=== PATIENT | female | born 1955 | race Caucasian/White ===

== ENCOUNTER 2022-07-30 06:36 | Emergency (ER) | payer MEDICARE, OTHER, SELFPAY ==
[2022-07-30 06:37] VITALS: BP 182/105; PULSE 65; RESP 18; TEMP 36.7; O2SAT 96; BMI 33.2
[2022-07-30 06:55] VITALS: BP 165/84; PULSE 65; RESP 14; TEMP 36.6; O2SAT 93
--- NOTE | 2022-07-30 07:07 | CTR_ITS ---
PROCEDURE INFORMATION: Exam: CT Abdomen And Pelvis Without Contrast Exam date and time: 07/30/2022 7:25 AM Age: 67 years old Clinical indication: Abdominal pain; Localized; Left lower quadrant (llq); Prior surgery; Surgery type: Lap band, hyster; Additional info: Llq pain TECHNIQUE: Imaging protocol: Computed tomography of the abdomen and pelvis without contrast. Total images: 2 Radiation optimization: All CT scans at this facility use at least one of these dose optimization techniques: automated exposure control; mA and/or kV adjustment per patient size (includes targeted exams where dose is matched to clinical indication); or iterative reconstruction. COMPARISON: No relevant prior studies available. RADIATION DOSE METRICS: Total DLP (mGy-cm): 875.83 FINDINGS: Lungs: Bulla medial right middle lobe. Mild dependent atelectasis. Mediastinal space: Fluid within the esophageal lumen, likely indicating gastroesophageal reflux. Liver: Liver contour changes raise suspicion for cirrhosis. Hepatic steatosis is evident. Gallbladder and bile ducts: Normal. No calcified stones. No ductal dilation. Pancreas: Normal. No ductal dilation. Spleen: Normal. No splenomegaly. Adrenal glands: Normal. No mass. Kidneys and ureters: Nonobstructive left sided kidney stone measures 3 mm. 4 mm distal left sided ureteral stone. Mild hydroureteronephrosis. Stomach and bowel: There is a gastric band identified and is intact. There is no gastric band slippage. Appendix: No evidence of appendicitis. Intraperitoneal space: Unremarkable. No free air. No significant fluid collection. Vasculature: Mild atherosclerotic disease is evident. Incidental phleboliths noted. Lymph nodes: Unremarkable. No enlarged lymph nodes. Urinary bladder: Unremarkable as visualized. Reproductive: Prior hysterectomy noted. Bones/joints: Unremarkable. No acute fracture. Soft tissues: Unremarkable. CT/CT abdomen pelvis wo con [id number] IMPRESSION: 1. Liver contour changes raise suspicion for cirrhosis. Recommend correlation with risk factors and liver function tests. 2. 4 mm distal left sided ureteral stone. Mild hydroureteronephrosis.
--- NOTE | 2022-07-30 07:08 | ED_ITS ---
HPI - Abdominal Pain General: Chief Complaint: Abdominal Pain Stated Complaint: Abd pains, unable to urinate, N/V Time Seen by Provider: 07/30/22 06:49 Source: patient and family Mode of arrival: ambulatory Limitations: no limitations History of Present Illness: This patient makes her way to the emergency department this morning because she is concerned about left lower abdominal pain. She states this pain symptoms began approximately 2300 hrs. yesterday. She states that is kept her up all night. She states that seemingly in the same location since onset and has not seem to be improved or worsened by anything that she is done. She has attempted to have a bowel movement and was successful but no blood or black tarry stools. She states she has had occasional urinary tract infections in the past but the symptoms are somewhat dissimilar to those usual symptoms. She denies any dysuria, fevers. She has no history of kidney stones. No known diverticulosis. She has had a prior hysterectomy as well as a abdominal plasty. She states she denies any trauma but they have been riding [id number] recently but no significant trauma related to that activity. She is a non-smoker. She did vomit this morning because of the pain. She does not have a history of kidney stones. No bad food exposure no one ill at home. MD elicited complaint: abdominal pain Location: LLQ Quality: cramping and aching Migration to: no migration Exacerbating factors: nothing Relieving factors: nothing Associated Symptoms: Reports nausea and vomiting; Denies chills, diarrhea, dysuria, fever(s), hematochezia, hematemesis, melena and syncope Review of Systems Const: Denies: fever(s) or chills Eyes: Denies: change in vision ENMT: Denies: throat pain, odynophagia, nasal discharge, nasal congestion or nasal obstruction Card: Denies: chest pain, palpitations, irregular heart rhythm, edema, syncope, pre-syncope or dyspnea on exertion Resp: Denies: dyspnea, productive cough or non-productive cough GI: Reports: abdominal pain, nausea and vomiting; Denies: hematemesis, diarrhea, hematochezia or melena : Denies: flank pain, difficulty voiding, dysuria, urinary frequency, urinary urgency or urinary hesitancy Musc: Denies: neck pain, back pain, extremity pain or extremity swelling Skin/Breast: Denies: rash, pruritus or erythema Neuro: Denies: headache(s), numbness in extremities, weakness in extremities, sensory changes, Slurred speech present or difficulty communicating thoughts Psych: Denies: anxiety, depression or mood swings Endo: Denies: polyuria, polydipsia or tired all the time Kei/Lymph: Denies: easy bruising Physical Exam Narrative: EXAM NARRATIVE: She appears to be comfortable. Is in good spirits and interacts in a normal fashion. Const: COMMON NORMALS: no acute distress, patient oriented x3 and no limitations GENERAL APPEARANCE: cooperative and comfortable NUTRITIONAL APPEARANCE: overweight HENMT: COMMON NORMALS: normocephalic, Normal nasal mucous membranes and turbinates present, moist oral mucous membranes and oropharynx normal HEAD & SCALP: normocephalic FACE & SINUS: normal facial exam NOSE: Normal nasal mucous membranes and turbinates present Eye: COMMON NORMALS: Equal, round and reactive pupils present, EOMs intact bilaterally, conjunctivae normal and no scleral icterus CONJUNCTIVA: Yes conjunctivae normal PUPIL: Yes Equal, round and reactive pupils present Neck/C-Spine: COMMON NORMALS: full ROM, no lymphadenopathy, supple and no JVD Chest: COMMONS NORMALS: normal inspection of the chest Resp: COMMON NORMALS: normal respiratory effort, No retractions and clear to auscultation bilaterally AUSCULTATION: clear to auscultation bilaterally Cardio: COMMON NORMALS: no JVD, regular rate, regular rhythm, No murmurs present (Cardio) and Peripheral pulses 2+ throughout RATE: regular rate RHYTHM: regular rhythm PERIPHERAL PULSES: Peripheral pulses 2+ throughout GI: COMMON NORMALS: Normal to inspection, nondistended, normoactive bowel sounds present, no masses and no bruits OTHER: Abdominal examination is reveals no evidence of ecchymosis, skin and rashes. She has tenderness to palpation in the left lower quadrant with some voluntary g uarding. No rebound. No other areas of focal tenderness. : COMMON NORMALS: Yes no CVA tenderness BLADDER/KIDNEY EXAM: Yes no CVA tenderness Back/Pelvis: COMMON NORMALS: no CVA tenderness, thoracic and lumbar spine normal to inspection, no thoracic nor lumbar tenderness, thoraco-lumbar ROM normal and straight leg raise negative bilaterally Extremity: COMMON NORMALS: normal to inspection, full ROM, capillary refill normal, no calf tenderness and no pedal edema Neuro: COMMON NORMALS: patient oriented x3, moves all extremities and no focal motor deficits CRANIAL NERVES: Yes CN normal except as noted Psych: COMMON NORMALS: mental status grossly normal Skin: COMMON NORMALS: no rashes or lesions noted, turgor normal and no jaundice GENERAL SKIN EXAM: no rashes or lesions noted and turgor normal Course Reevaluation(s): Reevaluation #1: Much more comfortable. Discussed current findings and expected course and return recommendations and follow-up recommendations. No new findings on reevaluation. Time: 08:15 Vital Signs: Vital signs: Vital Signs Temperature 97.8 F 07/30/22 06:55 Pulse Rate 71 07/30/22 08:04 Respiratory Rate 16 07/30/22 08:04 Blood Pressure 158/78 07/30/22 08:04 Pulse Oximetry 97 07/30/22 08:04 Oxygen Delivery Me thod 07/30/22 08:04 Oxygen Flow Rate 2 07/30/22 08:04 MDM - Abdominal Pain Medical Decision Making This patient who presented to the emergency department with a several hour duration of left-sided abdominal pain. Evaluation clinically did not reveal any evidence of surgical abdomen etc. at this time. Ancillary studies and imaging revealed evidence of a distal ureteral stone. No evidence of infection at this time. No other evidence of other worrisome intra-abdominal conditions at this time. The nature location and size of stone consistent with a high probability of spontaneous passage. The patient responded to therapy and is suitable to be discharged with outpatient follow-up and return precautions. Medical Records I reviewed the patient's medical records. Lab Data I reviewed the patient's lab results. : 07/30/22 07:25 07/30/22 07:25 Labs/Radiology: Radiology Impressions Abdomen/Pelvis CT 07/30/22 07:07 IMPRESSION: 1. Liver contour changes raise suspicion for cirrhosis. Recommend correlation with risk factors and liver function tests. 2. 4 mm distal left sided ureteral stone. Mild hydroureteronephrosis. Laboratory Results WBC 7.2 10^3/uL (4.0-10.0) 07/30/22 07:25 RBC 4.90 10^6/uL (4.1-5.3) 07/30/22 07:25 Hgb 13.4 g/dL (11.5-15.3) 07/30/22 07:25 Hct 42.1 % (37.0-47.0) 07/30/22 07:25 MCV 85.9 fl (81-99) 07/30/22 07:25 MCH 27.3 pg (28.0-34.0) L 07/30/22 07:25 MCHC 31.8 g/dL (30.0-36.0) 07/30/22 07:25 RDW 14.4 % (12.1-15.1) 07/30/22 07:25 Plt Count 199 10^3/cmm (130-400) 07/30/22 07:25 MPV 10.5 fL (7.4-10.4) H 07/30/22 07:25 Neut % (Auto) 82.2 % 07/30/22 07:25 Lymph % (Auto) 11.6 % 07/30/22 07:25 Duchesne % (Auto) 4.8 % 07/30/22 07:25 Eos % (Auto) 1.0 % 07/30/22 07:25 Baso % (Auto) 0.3 % 07/30/22 07:25 Neut # (Auto) 5.88 10^3/uL (1.8-7.7) 07/30/22 07:25 Lymph # (Auto) 0.8 10^3/uL (0.8-4.8) 07/30/22 07:25 Duchesne # (Auto) 0.3 10^3/uL (0.2-0.9) 07/30/22 07:25 Eos # (Auto) 0.1 10^3/uL (0.0-0.8) 07/30/22 07:25 Baso # (Auto) 0.0 10^3/uL (0.0-0.1) 07/30/22 07:25 Nucleated RBC % (auto) 0 % 07/30/22 07:25 Nucleated RBCs # 0.0 /100WBC 07/30/22 07:25 Sodium 138 mmol/L (136-145) 07/30/22 07:25 Potassium 3.9 mmol/L (3.5-5.1) 07/30/22 07:25 Chloride 98 mmol/L (98-107) 07/30/22 07:25 Carbon Dioxide 25 mmol/L (22-29) 07/30/22 07:25 Anion Gap 18.9 (5-19) 07/30/22 07:25 BUN 14 mg/dL (8-23) 07/30/22 07:25 Creatinine 0.8 mg/dL (0.5-0.9) 07/30/22 07:25 GFR Calculation 71.1 mL/min (90-130) L 07/30/22 07:25 Glucose 193 mg/dL (65-115) H 07/30/22 07:25 Calculated Osmolality 292 mOsm/kg (285-295) 07/30/22 07:25 Calcium 9.1 mg/dL (8.5-10.5) 07/30/22 07:25 Total Bilirubin 0.5 mg/dL (0.15-1.2) 07/30/22 07:25 AST 29 U/L (0-32) 07/30/22 07:25 ALT 25 U/L (0-33) 07/30/22 07:25 Alkaline Phosphatase 83 U/L (35-105) 07/30/22 07:25 Total Protein 7.4 g/dL (6.6-8.7) 07/30/22 07:25 Albumin 4.1 g/dL (3.5-5.2) 07/30/22 07:25 Globulin 3.3 g/dL (1.3-4.6) 07/30/22 07:25 Urine Color Dark yellow (Yellow) 07/30/22 07:25 Urine Appearance Hazy (CLEAR) A 07/30/22 07:25 Urine pH 5 (5-7) 07/30/22 07:25 Ur Specific Cranberry 1.030 (1.005-1.030) 07/30/22 07:25 Urine Protein Neg (Negative) 07/30/22 07:25 Urine Glucose (UA) Norm (Normal) 07/30/22 07:25 Urine Ketones Negative (Negative) 07/30/22 07:25 Urine Blood 2+ (Negative) H 07/30/22 07:25 Urine Nitrate Negative (Negative) 07/30/22 07:25 Urine Bilirubin 1+ (Negative) H 07/30/22 07:25 Urine Urobilinogen Norm mg/dL (Negative) 07/30/22 07:25 Ur Leukocyte Esterase Negative (Negative) 07/30/22 07:25 Urine RBC Rare /hpf (0-2) 07/30/22 07:25 Urine WBC Rare /hpf (0-5) 07/30/22 07:25 Ur Squamous Epith Cells 5-10 /hpf (0-5) H 07/30/22 07:25 Calcium Oxalate Crystal 10-15 /hpf H 07/30/22 07:25 Amorphous Sediment Not Reportable 07/30/22 07:25 Urine Bacteria Trace /hpf (NONE) 07/30/22 07:25 Discharge Plan Discharge Patient Disposition: Home Clinical Impression: Kidney stone on left side Condition: Stable Prescriptions: New ketorolac 10 mg tablet 10 mg PO Q8H PRN (Reason: pain) Qty: 14 0RF Flomax 0.4 mg capsule 0.4 mg PO DAILY Qty: 7 0RF Discharge Orders: Discharge ED (Routine); Ordered 07/30/22 Ordered By: Conrad Huertas Discharge Diet: Usual diet Discharge Activity: Increase activity as tolerated Patient Instructions: Kidney Stones (ED), Opioid Safety, Pain Management Activity Restrictions/Additional Instructions: As we discussed you have a kidney stone in the left ureter. This is a size usually has a high probability of passage with with maintaining oral hydration. Call your primary care doctor office this coming week to discuss additional follow-up and perhaps urology follow-up if indicated. If you develop fever, inability to tolerate medications, increasing pain seek care at the nearest emergency department. Make sure you are drinking at least 2 quarts of fluid preferably water daily. Coding Level of Care Code ED [employer] F[employer] Exam Comprehensive
[2022-07-30 07:25] VITALS: RESP 16
[2022-07-30] MEDS: ondansetron 2 mg/ML SDV 2 mL 4 MG IVP (07:25)
[2022-07-30] MEDS: morphine 4 mg/mL SDV 1 mL IVP (07:25)
[2022-07-30 07:32] VITALS: BP 165/84; PULSE 70; RESP 16; O2SAT 89
[2022-07-30] MEDS: sodium chloride 0.9% 1,000 ML 999 ML IV (07:33)
--- NOTE | 2022-07-30 07:40 | PC.NURSE ---
PATIENT PLACED ON 2 L NC O2 DUE TO DROP IN OXYGEN SATURATION AFTER MORPHINE.
[2022-07-30 07:52] LABS: Basophils % 0.3 %; Eosinophils # 0.1 10^3/uL (0.0-0.8); Hematocrit 42.1 % (37.0-47.0); Hemoglobin 13.4 g/dL (11.5-15.3); Lymphocytes # 0.8 10^3/uL (0.8-4.8); Lymphocytes % 11.6 %; Mean Corpuscular HGB Conc 31.8 g/dL (30.0-36.0); Mean Corpuscular Hemoglobin 27.3 pg (28.0-34.0); Mean Corpuscular Volume 85.9 fl (81-99); Mean Platelet Volume 10.5 fL (7.4-10.4); Monocytes # 0.3 10^3/uL (0.2-0.9); Monocytes % 4.8 %; Neutrophils # 5.88 10^3/uL (1.8-7.7); Neutrophils % 82.2 %; Nucleated Red Blood Cells % 0 %; Platelet Count 199 10^3/cmm (130-400); Red Cell Distribution Width 14.4 % (12.1-15.1); White Blood Count 7.2 10^3/uL (4.0-10.0)
[2022-07-30 07:59] LABS: Add Urine Microscopic? YES; Bilirubin Urine 1+ (Negative); Blood Urine 2+ (Negative); Glucose Urine UA Norm (Normal); Ketones Urine Negative (Negative); Leukocyte Esterase Urine Negative (Negative); Nitrate Urine Negative (Negative); Protein Urine Neg (Negative); Urine Appearance Hazy (CLEAR); Urine Color Dark Yellow (Yellow); Urobilinogen Urine Norm (Negative); pH Urine 5 (5-7)
[2022-07-30 08:00] LABS: Add Urine Culture? No; Bacteria Urine TRACE /hpf; RBC Urine RARE /hpf (0-2); WBC Urine RARE /hpf (0-5)
[2022-07-30] MEDS: ketorolac 30 mg/mL INJ 15 MG IVP (08:02)
[2022-07-30 08:04] VITALS: BP 158/78; PULSE 71; RESP 16; O2SAT 97
[2022-07-30 08:07] LABS: Alanine Aminotransferase 25 U/L (0-33); Albumin Level 4.1 g/dL (3.5-5.2); Alkaline Phosphatase 83 U/L (35-105); Anion Gap 18.9 (5-19); Aspartate Amino Transferase 29 U/L (0-32); Blood Urea Nitrogen 14 mg/dL (8-23); Calcium 9.1 mg/dL (8.5-10.5); Carbon Dioxide 25 mmol/L (22-29); Chloride 98 mmol/L (98-107); Globulin 3.3 g/dL (1.3-4.6); Glomerular Filtration Rate 71.1 mL/min (90-130); Glucose 193 mg/dL (65-115); Osmolality Calculated 292 mOsm/kg (285-295); Potassium 3.9 mmol/L (3.5-5.1); Sodium 138 mmol/L (136-145); Total Bilirubin 0.5 mg/dL (0.15-1.2); Total Protein 7.4 g/dL (6.6-8.7)
[2022-07-30 08:31] VITALS: BP 127/69; PULSE 75; O2SAT 98
== END 2022-07-30 08:33 | disposition home or self-care (01) ==
PROVIDERS: Emergency Provider Emergency Medicine
DX: N13.2 Hydronephrosis with renal and ureteral calculous obstruction (principal)
CPT/HCPCS: 74176; 80053; 81001; 85025; 96361; 96374; 96375; 99285; J1885; J2270; J2405; J7030